=== PATIENT | male | born 1980 | race African-American/Black ===

== ENCOUNTER 2018-01-08 15:02 | Emergency (ER) | payer OTHER, SELFPAY ==
[2018-01-08 15:58] LABS: #Eosinphils 0.1 thou/uL (0.0-0.7); #Lymphocytes 1.5 thou/uL (1.20-3.40); #Monocytes 0.5 thou/uL (0.11-0.59); #Neutrophils 5.3 thou/uL (1.40-6.50); %Basophils 0.6 % (0.0-1.0); %Eosinophils 1.1 % (0.0-10.0); %Lymphocytes 20.3 % (21.0-51.0); %Monocytes 6.7 % (0.0-10.0); %Neutrophils 71.3 % (42.0-75.0); Hemoglobin 14.6 g/dL (14.0-18.0); Mean Corpuscular HGB CONC 34.2 g/dL (32.0-36.0); Mean Corpuscular Hemoglobin 31.2 pg (27.0-31.0); Mean Corpuscular Volume 91.3 fl (80.0-94.0); Mean Platelet Volume 10.1 fL (7.4-10.4); Platelet Count 136 thou/uL (130-400); RBC Distribution Width 12.4 % (11.5-14.5); Red Blood Cell (RBC) Count 4.68 mill/uL (4.70-6.10); White Blood Cell (WBC) Count 7.4 thou/uL (4.8-10.8)
[2018-01-08 16:05] LABS: PTT 26.2 SEC (22.9-36.1); Prothrombin Time 13.2 SEC (12.0-14.7)
[2018-01-08 16:20] LABS: ALT (SGPT) 20 U/L (8-55); AST (SGOT) 16 U/L (5-34); Albumin 4.2 g/dL (3.5-5.0); Alkaline Phosphatase 71 U/L (40-150); Anion Gap 9 mmol/L (10-20); BUN (Urea Nitrogen) 15 mg/dL (8.9-20.6); Bilirubin, Total 0.2 mg/dL (0.2-1.2); CK (CPK) 136 U/L (30-200); Calc. Creatinine Clearance 0 mL/min (70-130); Calcium 9.2 mg/dL (7.8-10.44); Carbon Dioxide 31 mmol/L (22-29); Chloride 104 mmol/L (98-107); Estimated GFR-MDRD 75; Glucose 90 mg/dL (70-105); Potassium 3.6 mmol/L (3.5-5.1); Protein, Total 7.2 g/dL (6.0-8.3); Sodium 140 mmol/L (136-145)
[2018-01-08 16:21] LABS: Acetaminophen Less than 6.0 mcg/mL (10.0-30.0); Alcohol Less than 10 mg/dL (Less than 10); Magnesium 2.4 mg/dL (1.6-2.6); Salicylate Less than 8.0 mg/dL (15.0-30.0)
[2018-01-08 16:24] LABS: CKMB 0.5 ng/mL (0-6.6); Troponin I Less than 0.010 ng/mL (< 0.028)
--- NOTE | 2018-01-08 16:25 | CT ---
CT OF BRAIN PERFORMED WITHOUT CONTRAST ENHANCEMENT: Date: 01/08/18 HISTORY: Altered mental status. COMPARISON: None. FINDINGS: Postop right frontal craniotomy change is noted. There is underlying encephalomalacia of the frontal and temporal lobe region. There are no signs of intracerebral hemorrhage or extra-axial fluid collect ions. IMPRESSION: Encephalomalacia change of the right frontal and temporal lobes with postop craniotomy change. No acu te intracranial abnormalities. POS: [facility]
[2018-01-08 16:46] LABS: Bilirubin Negative (Negative); Blood, Urine Negative (Negative); Clarity CLEAR (Clear); Glucose, Urine (Dipstick) Negative (Negative); Leukocyte Negative (Negative); Nitrite Negative (Negative); Protein, Urine (Dipstick) Negative (Neg-Trace); Urobilinogen 0.2 mg/dL (0.2-1.0)
[2018-01-08 16:54] LABS: Amphetamine Not Detected (NotDetected); Barbiturates Screen Not Detected (NotDetected); Benzodiazepine Screen Not Detected (NotDetected); Cocaine Metabolite Screen Not Detected (NotDetected); Medtox Control Line Valid? VALID (VALID); Medtox Reader # READER 1; Methadone Not Detected (NotDetected); Methamphetamine Not Detected (NotDetected); Opiate Screen Not Detected (NotDetected); Oxycodone Screen Not Detected (NotDetected); Phencyclidine (PCP) Not Detected (NotDetected); THC/Cannabinoid Screen Not Detected (NotDetected); Tricyclic Screen Not Detected (NotDetected)
== END 2018-01-08 18:17 | disposition home or self-care (01) ==
LOC: ERS 15:02
DX: R41.82 Altered mental status, unspecified (principal); T50.905A Adverse effect of unspecified drugs, medicaments and biological substances, initial encounter; Z87.891 Personal history of nicotine dependence
CPT/HCPCS: 36415; 70450; 80053; 80306; 80307; 81003; 82550; 82553; 83735; 84443; 84484; 85025; 85610; 85730; 93005; 96360

== ENCOUNTER 2018-04-19 13:07 | Emergency (ER) | payer SELFPAY | END 2018-04-19 15:20 | disposition home or self-care (01) | LOC: ERS 13:07 | DX: K62.5 Hemorrhage of anus and rectum (principal); Z87.891 Personal history of nicotine dependence | CPT/HCPCS: 82274; 99283 ==

== ENCOUNTER 2018-05-27 15:00 | Emergency (ER) | payer SELFPAY ==
[2018-05-27 15:48] LABS: #Eosinphils 0.3 thou/uL (0.0-0.7); #Lymphocytes 1.2 thou/uL (1.20-3.40); #Monocytes 0.5 thou/uL (0.11-0.59); #Neutrophils 3.9 thou/uL (1.40-6.50); %Basophils 0.2 % (0.0-1.0); %Eosinophils 4.6 % (0.0-10.0); %Lymphocytes 20.3 % (21.0-51.0); %Monocytes 7.7 % (0.0-10.0); %Neutrophils 67.2 % (42.0-75.0); Hemoglobin 14.2 g/dL (14.0-18.0); Mean Corpuscular HGB CONC 33.1 g/dL (32.0-36.0); Mean Corpuscular Hemoglobin 30.2 pg (27.0-31.0); Mean Corpuscular Volume 91.2 fL (78.0-98.0); Mean Platelet Volume 9.4 fL (7.4-10.4); Platelet Count 161 thou/uL (130-400); RBC Distribution Width 12.2 % (11.5-14.5); White Blood Cell (WBC) Count 5.8 thou/uL (4.8-10.8)
[2018-05-27 16:11] LABS: ALT (SGPT) 20 U/L (8-55); AST (SGOT) 19 U/L (5-34); Acetaminophen Less than 6.0 mcg/mL (10.0-30.0); Albumin 4.3 g/dL (3.5-5.0); Alcohol 78 mg/dL (Less than 10); Alkaline Phosphatase 92 U/L (40-150); Anion Gap 14 mmol/L (10-20); BUN (Urea Nitrogen) 11 mg/dL (8.9-20.6); Bilirubin, Total 0.3 mg/dL (0.2-1.2); Calc. Creatinine Clearance 0 mL/min (70-130); Calcium 8.9 mg/dL (7.8-10.44); Carbon Dioxide 21 mmol/L (22-29); Chloride 105 mmol/L (98-107); Estimated GFR-MDRD 89; Globulin 3.1 g/dL (2.4-3.5); Glucose 97 mg/dL (70-105); Potassium 3.5 mmol/L (3.5-5.1); Protein, Total 7.4 g/dL (6.0-8.3); Salicylate Less than 8.0 mg/dL (15.0-30.0); Sodium 136 mmol/L (136-145)
--- NOTE | 2018-05-27 16:22 | CT ---
CT HEAD NONCONTRAST: 05/27/18 HISTORY: Altered mental status. COMPARISON: 01/08/18. FINDINGS: There is no evidence of acute intracranial hemorrhage or infarct. Encephalomalacia in the right front al and temporal lobes from old infarcts are stable. There is no mass effect or shift of midline struc tures. Ventricles are unremarkable. The visualized paranasal sinuses remain well aerated. 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 No acute intracranial abnormalities are demonstrated. POS: [facility]
[2018-05-27 16:56] LABS: Bilirubin Negative (Negative); Blood, Urine Negative (Negative); Clarity CLEAR (Clear); Glucose, Urine (Dipstick) Negative (Negative); Leukocyte Negative (Negative); Nitrite Negative (Negative); Protein, Urine (Dipstick) Negative (Neg-Trace); Specific Gravity, Urine 1.013 (1.002-1.036); Urobilinogen 0.2 mg/dL (0.2-1.0); pH, Urine 5.5 (5.0-9.0)
[2018-05-27 17:05] LABS: Amphetamine Not Detected (NotDetected); Barbiturates Screen Not Detected (NotDetected); Benzodiazepine Screen Not Detected (NotDetected); Cocaine Metabolite Screen Not Detected (NotDetected); Medtox Control Line Valid? VALID (VALID); Medtox Reader # READER 1; Methadone Not Detected (NotDetected); Methamphetamine Not Detected (NotDetected); Opiate Screen Not Detected (NotDetected); Oxycodone Screen Not Detected (NotDetected); Phencyclidine (PCP) Not Detected (NotDetected); THC/Cannabinoid Screen Detected (NotDetected); Tricyclic Screen Not Detected (NotDetected)
== END 2018-05-27 18:08 | disposition home or self-care (01) ==
LOC: ERS 15:00
DX: T67.5XXA Heat exhaustion, unspecified, initial encounter (principal); F10.129 Alcohol abuse with intoxication, unspecified; E86.0 Dehydration; F12.10 Cannabis abuse, uncomplicated; Z87.891 Personal history of nicotine dependence
CPT/HCPCS: 36415; 70450; 80053; 80306; 80307; 81003; 82550; 85025; 93005; 96360; 96361

== ENCOUNTER 2018-07-08 18:41 | Emergency (ER) | payer SELFPAY ==
[2018-07-08 19:37] LABS: ALT (SGPT) 37 U/L (8-55); AST (SGOT) 28 U/L (5-34); Albumin 4.5 g/dL (3.5-5.0); Alcohol 180 mg/dL (Less than 10); Alkaline Phosphatase 95 U/L (40-150); Anion Gap 17 mmol/L (10-20); BUN (Urea Nitrogen) 11 mg/dL (8.9-20.6); Bilirubin, Total 0.2 mg/dL (0.2-1.2); Calc. Creatinine Clearance 0 mL/min (70-130); Calcium 9.1 mg/dL (7.8-10.44); Carbon Dioxide 22 mmol/L (22-29); Chloride 106 mmol/L (98-107); Estimated GFR-MDRD 85; Globulin 3.4 g/dL (2.4-3.5); Glucose 91 mg/dL (70-105); Potassium 4.5 mmol/L (3.5-5.1); Protein, Total 7.9 g/dL (6.0-8.3); Sodium 140 mmol/L (136-145)
[2018-07-08 19:44] LABS: Hemoglobin 15.9 g/dL (14.0-18.0); Mean Corpuscular HGB CONC 31.8 g/dL (32.0-36.0); Mean Corpuscular Hemoglobin 29.6 pg (27.0-31.0); Platelet Count 115 thou/uL (130-400); RBC Distribution Width 12.6 % (11.5-14.5); Red Blood Cell (RBC) Count 5.36 mill/uL (4.70-6.10); White Blood Cell (WBC) Count 5.9 thou/uL (4.8-10.8)
[2018-07-08 19:45] LABS: Acetaminophen Less than 6.0 mcg/mL (10.0-30.0); Alcohol 179 mg/dL (Less than 10); Salicylate Less than 8.0 mg/dL (15.0-30.0)
[2018-07-08 19:46] LABS: Lymphocytes 34 % (21-51); MDiff Complete? YES; Monocytes 7 % (0-10); Neutrophil 56 % (42-75); PLT Morphology Comment Appears Decreased; RBC Morphology Normal; Reactive Lymphocytes 2 % (0-10)
--- NOTE | 2018-07-08 20:18 | CT ---
HEAD CT WITHOUT CONTRAST: 07/08/18 COMPARISON: 05/27/18. HISTORY: Altered mental status. TECHNIQUE: Serial axial CT imaging obtained at 5 mm intervals from vertex through skull base without contrast. FINDINGS: There is evidence of multifocal prior right sided calvarial surgery, unchanged when compared to the most recent prior examination. There is volume loss/encephalomalacia within the temporal lobe inferio rly on the right and within the inferior and anterior aspect of the right frontal lobe suggesting lola or insult/infarction, unchanged as well. No intracranial hemorrhage, midline shift of mass effect. IMPRESSION: Stable head CT - no acute findings. POS: [facility]
== END 2018-07-09 00:43 | disposition home or self-care (01) ==
LOC: ERS 18:41
DX: F10.129 Alcohol abuse with intoxication, unspecified (principal); Y90.6 Blood alcohol level of 120-199 mg/100 ml; Z87.891 Personal history of nicotine dependence
CPT/HCPCS: 70450; 80053; 80307; 84443; 85025; 93005; 94760; 96360

== ENCOUNTER 2018-09-01 10:54 | Emergency (ER) | payer SELFPAY ==
[2018-09-01 12:33] LABS: #Basophils 0.1 thou/uL (0.0-0.2); #Eosinphils 0.1 thou/uL (0.0-0.7); #Lymphocytes 1.1 thou/uL (1.20-3.40); #Monocytes 0.3 thou/uL (0.11-0.59); #Neutrophils 3.9 thou/uL (1.40-6.50); %Basophils 1.1 % (0.0-1.0); %Eosinophils 1.1 % (0.0-10.0); %Lymphocytes 20.8 % (21.0-51.0); %Monocytes 5.8 % (0.0-10.0); %Neutrophils 71.2 % (42.0-75.0); Hemoglobin 15.3 g/dL (14.0-18.0); Mean Corpuscular HGB CONC 33.5 g/dL (32.0-36.0); Mean Corpuscular Hemoglobin 30.5 pg (27.0-31.0); Mean Corpuscular Volume 91.2 fL (78.0-98.0); Mean Platelet Volume 9.8 fL (7.4-10.4); Platelet Count 136 thou/uL (130-400); RBC Distribution Width 12.4 % (11.5-14.5); Red Blood Cell (RBC) Count 5.02 mill/uL (4.70-6.10); White Blood Cell (WBC) Count 5.4 thou/uL (4.8-10.8)
[2018-09-01 12:48] LABS: ALT (SGPT) 28 U/L (8-55); AST (SGOT) 18 U/L (5-34); Albumin 4.4 g/dL (3.5-5.0); Alkaline Phosphatase 98 U/L (40-150); Anion Gap 13 mmol/L (10-20); BUN (Urea Nitrogen) 15 mg/dL (8.9-20.6); Bilirubin, Total 0.3 mg/dL (0.2-1.2); Calc. Creatinine Clearance 0 mL/min (70-130); Calcium 9.2 mg/dL (7.8-10.44); Carbon Dioxide 26 mmol/L (22-29); Chloride 104 mmol/L (98-107); Estimated GFR-MDRD 89; Globulin 2.9 g/dL (2.4-3.5); Glucose 108 mg/dL (70-105); Potassium 4.5 mmol/L (3.5-5.1); Protein, Total 7.3 g/dL (6.0-8.3); Sodium 138 mmol/L (136-145)
[2018-09-01 12:49] LABS: Acetaminophen Less than 6.0 mcg/mL (10.0-30.0); Alcohol Less than 10 mg/dL (Less than 10); Salicylate Less than 8.0 mg/dL (15.0-30.0)
--- NOTE | 2018-09-01 13:22 | CT ---
CT BRAIN: 09/01/2018 PROVIDED CLINICAL HISTORY: Syncope. COMPARISON: 07/08/2018 FINDINGS: The ventricular system is unchanged in size and morphology. Right frontal encephalomalacia is redemo nstrated. There is no evidence for intracranial hemorrhage or mass effect. Postoperative changes in volving the right frontal skull. Extracranial soft tissues and osseous structures demonstrate no acu te findings. IMPRESSION: No evidence for intracranial hemorrhage or mass effect. POS: [facility]
--- NOTE | 2018-09-01 13:56 | RAD ---
RADIOGRAPH CHEST 1 VIEW: HISTORY: 37-year-old male status post syncope. FINDINGS: There are no air space densities, pulmonary edema, pneumothorax, or cardiomegaly. The lateral costop hrenic angles are sharp. IMPRESSION: No acute cardiopulmonary findings. jn POS: [facility]
[2018-09-01 13:59] LABS: Amphetamine Not Detected (NotDetected); Barbiturates Screen Not Detected (NotDetected); Benzodiazepine Screen Not Detected (NotDetected); Cocaine Metabolite Screen Not Detected (NotDetected); Medtox Control Line Valid? VALID (VALID); Medtox Reader # READER 1; Methadone Not Detected (NotDetected); Methamphetamine Not Detected (NotDetected); Opiate Screen Not Detected (NotDetected); Oxycodone Screen Not Detected (NotDetected); Phencyclidine (PCP) Not Detected (NotDetected); THC/Cannabinoid Screen Detected (NotDetected); Tricyclic Screen Not Detected (NotDetected)
== END 2018-09-01 14:44 | disposition home or self-care (01) ==
LOC: ERS 10:54
DX: L91.8 Other hypertrophic disorders of the skin (principal); F84.0 Autistic disorder; D57.00 Hb-SS disease with crisis, unspecified
CPT/HCPCS: 36415; 36416; 70450; 71045; 80053; 80306; 80307; 84443; 84484; 85025; 93005

== ENCOUNTER 2018-11-28 18:08 | Emergency (ER) | payer SELFPAY ==
[2018-11-28 18:51] LABS: #Lymphocytes 1.1 thou/uL (1.20-3.40); #Monocytes 0.3 thou/uL (0.11-0.59); #Neutrophils 4.7 thou/uL (1.40-6.50); %Basophils 0.1 % (0.0-1.0); %Eosinophils 0.7 % (0.0-10.0); %Lymphocytes 18.1 % (21.0-51.0); %Monocytes 4.9 % (0.0-10.0); %Neutrophils 76.2 % (42.0-75.0); Hemoglobin 13.8 g/dL (14.0-18.0); Mean Corpuscular HGB CONC 33.1 g/dL (32.0-36.0); Mean Corpuscular Volume 93.8 fL (78.0-98.0); Mean Platelet Volume 9.7 fL (7.4-10.4); Platelet Count 146 thou/uL (130-400); RBC Distribution Width 12.2 % (11.5-14.5); Red Blood Cell (RBC) Count 4.43 mill/uL (4.70-6.10); White Blood Cell (WBC) Count 6.2 thou/uL (4.8-10.8)
[2018-11-28 19:13] LABS: ALT (SGPT) 21 U/L (8-55); AST (SGOT) 15 U/L (5-34); Acetaminophen Less than 6.0 mcg/mL (10.0-30.0); Albumin 4.4 g/dL (3.5-5.0); Alcohol 13 mg/dL (Less than 10); Alkaline Phosphatase 94 U/L (40-150); Anion Gap 14 mmol/L (10-20); BUN (Urea Nitrogen) 12 mg/dL (8.9-20.6); Bilirubin, Total 0.3 mg/dL (0.2-1.2); Calc. Creatinine Clearance 0 mL/min (70-130); Calcium 9.5 mg/dL (7.8-10.44); Carbon Dioxide 25 mmol/L (22-29); Chloride 107 mmol/L (98-107); Estimated GFR-MDRD 66; Globulin 2.8 g/dL (2.4-3.5); Glucose 115 mg/dL (70-105); Potassium 3.5 mmol/L (3.5-5.1); Protein, Total 7.2 g/dL (6.0-8.3); Salicylate Less than 8.0 mg/dL (15.0-30.0); Sodium 142 mmol/L (136-145)
[2018-11-28] MEDS ORDERED: Adacel (T-DAP) 0.5 ML SYRINGE ONE (20:19)
--- NOTE | 2018-12-02 15:35 | EKG ---
Test Reason : AMS Blood Pressure : / mmHG Vent. Rate : 098 BPM Atrial Rate : 098 BPM P-R Int : 174 ms QRS Dur : 098 ms QT Int : 344 ms P-R-T Axes : 024 -03 004 degrees QTc Int : 439 ms Normal sinus rhythm Possible Left atrial enlargement RSR' or QR pattern in V1 suggests right ventricular conduction delay Left ventricular hypertrophy ST elevation, consider early repolarization, pericarditis, or injury Abnormal ECG Basic electrical rhythm Confirmed by RED CARCAMO ([id number]), telegraph editor ANDREW MONGE ([id number]) on 12/02/2018 3:35:06 PM Referred By: CARLOS ALBERTO Confirmed By:RED CARCAMO
== END 2018-11-28 21:09 | disposition home or self-care (01) ==
LOC: ERS 18:08
DX: F16.10 Hallucinogen abuse, uncomplicated (principal); Z87.891 Personal history of nicotine dependence
CPT/HCPCS: 36415; 80053; 80307; 85025; 90471; 90715; 93005

== ENCOUNTER 2019-02-18 19:55 | Emergency (ER) | payer SELFPAY ==
[2019-02-18] MEDS ORDERED: Acetaminophen 500 MG TAB ONE (21:01)
[2019-02-18 21:51] LABS: #Eosinphils 0.1 thou/uL (0.0-0.7); #Monocytes 0.3 thou/uL (0.11-0.59); #Neutrophils 3.9 thou/uL (1.40-6.50); %Basophils 0.7 % (0.0-1.0); %Eosinophils 1.2 % (0.0-10.0); %Lymphocytes 31.1 % (21.0-51.0); %Monocytes 4.3 % (0.0-10.0); %Neutrophils 62.7 % (42.0-75.0); Hemoglobin 14.1 g/dL (14.0-18.0); Mean Corpuscular HGB CONC 33.9 g/dL (32.0-36.0); Mean Corpuscular Hemoglobin 31.7 pg (27.0-31.0); Mean Corpuscular Volume 93.5 fL (78.0-98.0); Mean Platelet Volume 9.7 fL (7.4-10.4); Platelet Count 151 thou/uL (130-400); RBC Distribution Width 12.1 % (11.5-14.5); Red Blood Cell (RBC) Count 4.44 mill/uL (4.70-6.10); White Blood Cell (WBC) Count 6.3 thou/uL (4.8-10.8)
[2019-02-18 22:27] LABS: Albumin 4.3 g/dL (3.5-5.0)
[2019-02-18 22:29] LABS: Calcium 8.6 mg/dL (7.8-10.44); Chloride 109 mmol/L (98-107); Potassium 3.7 mmol/L (3.5-5.1); Sodium 141 mmol/L (136-145)
[2019-02-18 22:30] LABS: Globulin 2.7 g/dL (2.4-3.5); Glucose 103 mg/dL (70-105)
[2019-02-18 22:31] LABS: Anion Gap 17 mmol/L (10-20); Carbon Dioxide 19 mmol/L (22-29)
[2019-02-18 22:32] LABS: Bilirubin, Total 0.2 mg/dL (0.2-1.2)
[2019-02-18 22:33] LABS: Alkaline Phosphatase 86 U/L (40-150); Calc. Creatinine Clearance 0 mL/min (70-130); Estimated GFR-MDRD Greater than 90
[2019-02-18 22:34] LABS: BUN (Urea Nitrogen) 9 mg/dL (8.9-20.6)
[2019-02-18 22:35] LABS: AST (SGOT) 21 U/L (5-34)
[2019-02-18 22:36] LABS: ALT (SGPT) 27 U/L (8-55)
== END 2019-02-18 22:45 ==
LOC: ERS 19:55
DX: F19.10 Other psychoactive substance abuse, uncomplicated (principal); Z87.891 Personal history of nicotine dependence
CPT/HCPCS: 36415; 80053; 85025; 93005; 96360

== ENCOUNTER 2019-02-22 16:57 | Emergency (ER) | payer SELFPAY ==
[2019-02-22 17:28] LABS: #Eosinphils 0.1 thou/uL (0.0-0.7); #Monocytes 0.4 thou/uL (0.11-0.59); #Neutrophils 3.9 thou/uL (1.40-6.50); %Basophils 0.7 % (0.0-1.0); %Eosinophils 1.8 % (0.0-10.0); %Lymphocytes 30.8 % (21.0-51.0); %Monocytes 6.3 % (0.0-10.0); %Neutrophils 60.4 % (42.0-75.0); Hemoglobin 15.4 g/dL (14.0-18.0); Mean Corpuscular HGB CONC 33.7 g/dL (32.0-36.0); Mean Corpuscular Hemoglobin 31.4 pg (27.0-31.0); Mean Corpuscular Volume 93.3 fL (78.0-98.0); Mean Platelet Volume 9.9 fL (7.4-10.4); Platelet Count 166 thou/uL (130-400); White Blood Cell (WBC) Count 6.4 thou/uL (4.8-10.8)
[2019-02-22 17:47] LABS: ALT (SGPT) 38 U/L (8-55); AST (SGOT) 30 U/L (5-34); Albumin 4.7 g/dL (3.5-5.0); Alkaline Phosphatase 93 U/L (40-150); Anion Gap 15 mmol/L (10-20); BUN (Urea Nitrogen) 13 mg/dL (8.9-20.6); Bilirubin, Total 0.3 mg/dL (0.2-1.2); Calc. Creatinine Clearance 0 mL/min (70-130); Carbon Dioxide 24 mmol/L (22-29); Chloride 108 mmol/L (98-107); Estimated GFR-MDRD 67; Globulin 3.4 g/dL (2.4-3.5); Glucose 103 mg/dL (70-105); Potassium 4.3 mmol/L (3.5-5.1); Protein, Total 8.1 g/dL (6.0-8.3); Sodium 143 mmol/L (136-145)
[2019-02-22 19:41] LABS: Acetaminophen Less than 6.0 mcg/mL (10.0-30.0); Alcohol 54 mg/dL (Less than 10); Salicylate Less than 8.0 mg/dL (15.0-30.0)
[2019-02-22 19:45] LABS: Anion Gap 15 mmol/L (10-20); BUN (Urea Nitrogen) 12 mg/dL (8.9-20.6); CK (CPK) 252 U/L (30-200); Calc. Creatinine Clearance 0 mL/min (70-130); Calcium 8.4 mg/dL (7.8-10.44); Carbon Dioxide 22 mmol/L (22-29); Chloride 107 mmol/L (98-107); Estimated GFR-MDRD 77; Glucose 106 mg/dL (70-105); Potassium 4.1 mmol/L (3.5-5.1); Sodium 140 mmol/L (136-145)
[2019-02-22 19:57] LABS: Bacteria/HPF 1+ HPF (None Seen); Bilirubin Negative (Negative); Blood, Urine Negative (Negative); Calcium Oxalate Crystals 3+ HPF (None Seen); Clarity Turbid (Clear); Glucose, Urine (Dipstick) Normal (Negative); Leukocyte Negative Leu/uL (Negative); Nitrite Negative (Negative); Protein, Urine (Dipstick) 20 mg/dL (Neg-Trace); Squamous Epithelial 0-3 HPF (0-3); Urobilinogen Normal mg/dL (Less than 2)
[2019-02-22 20:06] LABS: Yeast-Budding None Seen HPF (None Seen)
[2019-02-22 20:47] LABS: Amphetamine Not Detected (NotDetected); Barbiturates Screen Not Detected (NotDetected); Benzodiazepine Screen Not Detected (NotDetected); Cocaine Metabolite Screen Not Detected (NotDetected); Medtox Control Line Valid? VALID (VALID); Medtox Reader # READER 1; Methadone Not Detected (NotDetected); Methamphetamine Not Detected (NotDetected); Opiate Screen Not Detected (NotDetected); Oxycodone Screen Not Detected (NotDetected); Phencyclidine (PCP) Not Detected (NotDetected); THC/Cannabinoid Screen Detected (NotDetected); Tricyclic Screen Not Detected (NotDetected)
--- NOTE | 2019-02-24 22:10 | EKG ---
Test Reason : AMS Blood Pressure : / mmHG Vent. Rate : 092 BPM Atrial Rate : 092 BPM P-R Int : 164 ms QRS Dur : 084 ms QT Int : 356 ms P-R-T Axes : 043 -12 038 degrees QTc Int : 440 ms Normal sinus rhythm Normal ECG Confirmed by RULA GRIMES ([id number]), book editor LAN VÁSQUEZ ([id number]) on 02/24/2019 10:09:24 PM Referred By: Confirmed By:RULA GRIMES
== END 2019-02-22 23:44 | disposition home or self-care (01) ==
LOC: ERS 16:57
DX: F12.10 Cannabis abuse, uncomplicated (principal); Z87.891 Personal history of nicotine dependence
CPT/HCPCS: 36415; 36416; 80053; 80306; 80307; 81003; 82550; 84443; 85025; 93005; 96360

== ENCOUNTER 2019-02-23 17:06 | Emergency (ER) | payer SELFPAY ==
[2019-02-23 17:38] LABS: #Eosinphils 0.1 thou/uL (0.0-0.7); #Lymphocytes 1.4 thou/uL (1.20-3.40); #Monocytes 0.2 thou/uL (0.11-0.59); #Neutrophils 3.7 thou/uL (1.40-6.50); %Basophils 0.3 % (0.0-1.0); %Lymphocytes 26.2 % (21.0-51.0); %Monocytes 4.1 % (0.0-10.0); %Neutrophils 68.3 % (42.0-75.0); Hemoglobin 14.1 g/dL (14.0-18.0); Mean Corpuscular HGB CONC 33.7 g/dL (32.0-36.0); Mean Corpuscular Hemoglobin 31.4 pg (27.0-31.0); Mean Corpuscular Volume 93.3 fL (78.0-98.0); Mean Platelet Volume 10.1 fL (7.4-10.4); Platelet Count 145 thou/uL (130-400); RBC Distribution Width 11.9 % (11.5-14.5); Red Blood Cell (RBC) Count 4.47 mill/uL (4.70-6.10); White Blood Cell (WBC) Count 5.4 thou/uL (4.8-10.8)
[2019-02-23 18:02] LABS: ALT (SGPT) 37 U/L (8-55); AST (SGOT) 34 U/L (5-34); Albumin 4.3 g/dL (3.5-5.0); Alkaline Phosphatase 84 U/L (40-150); Anion Gap 16 mmol/L (10-20); BUN (Urea Nitrogen) 13 mg/dL (8.9-20.6); Bilirubin, Total 0.3 mg/dL (0.2-1.2); Calc. Creatinine Clearance 0 mL/min (70-130); Calcium 8.9 mg/dL (7.8-10.44); Carbon Dioxide 22 mmol/L (22-29); Chloride 108 mmol/L (98-107); Estimated GFR-MDRD 78; Globulin 3.1 g/dL (2.4-3.5); Glucose 108 mg/dL (70-105); Potassium 4.5 mmol/L (3.5-5.1); Protein, Total 7.4 g/dL (6.0-8.3); Sodium 141 mmol/L (136-145)
== END 2019-02-23 20:52 | disposition home or self-care (01) ==
LOC: ERS 17:06
DX: F19.10 Other psychoactive substance abuse, uncomplicated (principal); Z87.891 Personal history of nicotine dependence
CPT/HCPCS: 80053; 85025; 93005; 94760; 96360

== ENCOUNTER 2019-03-30 17:14 | Emergency (ER) | payer SELFPAY ==
[2019-03-30 18:11] LABS: #Eosinphils 0.1 thou/uL (0.0-0.7); #Lymphocytes 1.8 thou/uL (1.20-3.40); #Monocytes 0.3 thou/uL (0.11-0.59); #Neutrophils 3.5 thou/uL (1.40-6.50); %Basophils 0.6 % (0.0-1.0); %Lymphocytes 31.6 % (21.0-51.0); %Monocytes 5.2 % (0.0-10.0); %Neutrophils 60.7 % (42.0-75.0); Hemoglobin 14.2 g/dL (14.0-18.0); Mean Corpuscular Hemoglobin 31.4 pg (27.0-31.0); Mean Corpuscular Volume 92.4 fL (78.0-98.0); Mean Platelet Volume 10.1 fL (7.4-10.4); Platelet Count 143 thou/uL (130-400); RBC Distribution Width 12.1 % (11.5-14.5); Red Blood Cell (RBC) Count 4.53 mill/uL (4.70-6.10); White Blood Cell (WBC) Count 5.8 thou/uL (4.8-10.8)
[2019-03-30 18:23] LABS: Bilirubin Negative (Negative); Blood, Urine Negative (Negative); Clarity Clear (Clear); Glucose, Urine (Dipstick) Normal (Negative); Leukocyte Negative Leu/uL (Negative); Nitrite Negative (Negative); Protein, Urine (Dipstick) 10 mg/dL (Neg-Trace); Urobilinogen Normal mg/dL (Less than 2)
[2019-03-30 18:30] LABS: Anion Gap 15 mmol/L (10-20); BUN (Urea Nitrogen) 11 mg/dL (8.9-20.6); CK (CPK) 203 U/L (30-200); Calc. Creatinine Clearance 0 mL/min (70-130); Carbon Dioxide 23 mmol/L (22-29); Chloride 106 mmol/L (98-107); Estimated GFR-MDRD 84; Glucose 82 mg/dL (70-105); Potassium 3.5 mmol/L (3.5-5.1); Sodium 140 mmol/L (136-145)
[2019-03-30 18:33] LABS: Amphetamine Not Detected (NotDetected); Barbiturates Screen Not Detected (NotDetected); Benzodiazepine Screen Not Detected (NotDetected); Cocaine Metabolite Screen Not Detected (NotDetected); Medtox Control Line Valid? VALID (VALID); Medtox Reader # READER 4; Methadone Not Detected (NotDetected); Methamphetamine Not Detected (NotDetected); Opiate Screen Not Detected (NotDetected); Oxycodone Screen Not Detected (NotDetected); Phencyclidine (PCP) Not Detected (NotDetected); THC/Cannabinoid Screen Detected (NotDetected); Tricyclic Screen Not Detected (NotDetected)
== END 2019-03-30 20:26 | disposition home or self-care (01) ==
LOC: ERS 17:14
DX: T67.5XXA Heat exhaustion, unspecified, initial encounter (principal); E86.0 Dehydration; Z87.891 Personal history of nicotine dependence
CPT/HCPCS: 36415; 80048; 80306; 81003; 82550; 85025; 99285

== ENCOUNTER 2019-04-04 20:57 | Emergency (ER) | payer SELFPAY ==
[2019-04-04 21:33] LABS: #Lymphocytes 1.4 thou/uL (1.20-3.40); #Monocytes 0.4 thou/uL (0.11-0.59); %Basophils 0.1 % (0.0-1.0); %Eosinophils 0.5 % (0.0-10.0); %Lymphocytes 20.7 % (21.0-51.0); %Monocytes 5.6 % (0.0-10.0); %Neutrophils 73.1 % (42.0-75.0); Hemoglobin 14.4 g/dL (14.0-18.0); Mean Corpuscular HGB CONC 34.7 g/dL (32.0-36.0); Mean Corpuscular Hemoglobin 32.3 pg (27.0-31.0); Mean Platelet Volume 9.8 fL (7.4-10.4); Platelet Count 143 thou/uL (130-400); RBC Distribution Width 12.1 % (11.5-14.5); Red Blood Cell (RBC) Count 4.45 mill/uL (4.70-6.10); White Blood Cell (WBC) Count 6.9 thou/uL (4.8-10.8)
[2019-04-04 22:07] LABS: ALT (SGPT) 28 U/L (8-55); AST (SGOT) 22 U/L (5-34); Acetaminophen Less than 6.0 mcg/mL (10.0-30.0); Albumin 4.2 g/dL (3.5-5.0); Alcohol Less than 10 mg/dL (Less than 10); Alkaline Phosphatase 85 U/L (40-150); Anion Gap 14 mmol/L (10-20); BUN (Urea Nitrogen) 14 mg/dL (8.9-20.6); Bilirubin, Total 0.2 mg/dL (0.2-1.2); Calc. Creatinine Clearance 0 mL/min (70-130); Calcium 8.9 mg/dL (7.8-10.44); Carbon Dioxide 22 mmol/L (22-29); Chloride 106 mmol/L (98-107); Estimated GFR-MDRD 62; Globulin 2.8 g/dL (2.4-3.5); Glucose 143 mg/dL (70-105); Potassium 3.9 mmol/L (3.5-5.1); Salicylate Less than 8.0 mg/dL (15.0-30.0); Sodium 138 mmol/L (136-145)
[2019-04-04 22:27] LABS: Amphetamine Not Detected (NotDetected); Cocaine Metabolite Screen Not Detected (NotDetected); Medtox Reader # READER 1; Methamphetamine Not Detected (NotDetected); Opiate Screen Not Detected (NotDetected); Phencyclidine (PCP) Not Detected (NotDetected); THC/Cannabinoid Screen Detected (NotDetected)
[2019-04-04 22:28] LABS: Barbiturates Screen Not Detected (NotDetected); Benzodiazepine Screen Not Detected (NotDetected); Medtox Control Line Valid? VALID (VALID); Methadone Not Detected (NotDetected); Oxycodone Screen Not Detected (NotDetected); Tricyclic Screen Not Detected (NotDetected)
[2019-04-04] MEDS ORDERED: Ondansetron ODT 8 MG TAB ONE (23:28)
--- NOTE | 2019-04-04 23:49 | CT ---
CT Brain WO Con HISTORY: Altered mental status. COMPARISON: 09/01/2018 exam. FINDINGS: Postoperative right frontal craniotomy changes are again demonstrated. Encephalomalacia smitha nges seen within the right frontal and temporal lobes. There are no signs of intracerebral hemorrhage or extra-axial fluid collections. The mastoid air cells and visualized sinuses are clear. IMPRESSION: No acute intracranial abnormalities.
[2019-04-04] MEDS ORDERED: Acetaminophen 500 MG TAB ONE (23:57)
== END 2019-04-05 00:04 | disposition home or self-care (01) ==
LOC: ERS 20:57
DX: F12.10 Cannabis abuse, uncomplicated (principal); Z87.891 Personal history of nicotine dependence
CPT/HCPCS: 70450; 80053; 80306; 80307; 82550; 85025; 94760; 96360

== ENCOUNTER 2019-05-26 13:00 | Emergency (ER) | payer SELFPAY ==
[2019-05-26 13:59] LABS: #Lymphocytes 1.5 thou/uL (1.20-3.40); #Monocytes 0.4 thou/uL (0.11-0.59); #Neutrophils 2.9 thou/uL (1.40-6.50); %Basophils 0.2 % (0.0-1.0); %Lymphocytes 31.6 % (21.0-51.0); %Monocytes 7.2 % (0.0-10.0); Hemoglobin 15.2 g/dL (14.0-18.0); Mean Corpuscular HGB CONC 33.7 g/dL (32.0-36.0); Mean Corpuscular Hemoglobin 31.4 pg (27.0-31.0); Mean Corpuscular Volume 93.2 fL (78.0-98.0); Mean Platelet Volume 10.4 fL (7.4-10.4); Platelet Count 126 thou/uL (130-400); RBC Distribution Width 11.9 % (11.5-14.5); Red Blood Cell (RBC) Count 4.84 mill/uL (4.70-6.10); White Blood Cell (WBC) Count 4.8 thou/uL (4.8-10.8)
[2019-05-26 14:12] LABS: Cocaine Metabolite Screen Not Detected (NotDetected); Medtox Reader # READER 1; Methamphetamine Not Detected (NotDetected); Opiate Screen Not Detected (NotDetected); Phencyclidine (PCP) Not Detected (NotDetected); THC/Cannabinoid Screen Detected (NotDetected)
[2019-05-26 14:13] LABS: Amphetamine Not Detected (NotDetected); Barbiturates Screen Not Detected (NotDetected); Benzodiazepine Screen Not Detected (NotDetected); Medtox Control Line Valid? VALID (VALID); Methadone Not Detected (NotDetected); Oxycodone Screen Not Detected (NotDetected); Tricyclic Screen Not Detected (NotDetected)
--- NOTE | 2019-05-26 14:22 | CT ---
CT Brain WO Con: 05/26/2019 1:30 PM CLINICAL HISTORY: AMS. COMPARISON: 04/04/2019 FINDINGS: Hemorrhage: None. Ventricular system: Stable ex vacuo dilatation. Cerebral parenchyma: Moderate size region of anterior right cerebral hemispheric encephalomalacia, an d encephalomalacia of the anterior right temporal lobe, stable Midline shift: None. Mass: No mass effect. Calvarium: Stable postoperative appearance of the right calvarium. Visualized Paranasal sinuses: Scattered paranasal sinus opacification including moderate fluid levels of the imaged maxillary sinuses. IMPRESSION: No acute intracranial abnormalities. Interval development of prominent fluid levels of the maxillary sinuses. This indicates acute sinusit is. Correlate clinically.
[2019-05-26 14:23] LABS: ALT (SGPT) 47 U/L (8-55); AST (SGOT) 39 U/L (5-34); Acetaminophen Less than 6.0 mcg/mL (10.0-30.0); Albumin 4.3 g/dL (3.5-5.0); Alcohol Less than 10 mg/dL (Less than 10); Alkaline Phosphatase 97 U/L (40-110); Anion Gap 16 mmol/L (10-20); BUN (Urea Nitrogen) 9 mg/dL (8.9-20.6); Bilirubin, Total 0.4 mg/dL (0.2-1.2); Calc. Creatinine Clearance 0 mL/min (70-130); Calcium 8.8 mg/dL (7.8-10.44); Carbon Dioxide 22 mmol/L (22-29); Chloride 104 mmol/L (98-107); Estimated GFR-MDRD Greater than 90; Globulin 3.4 g/dL (2.4-3.5); Glucose 116 mg/dL (70-105); Potassium 4.4 mmol/L (3.5-5.1); Protein, Total 7.7 g/dL (6.0-8.3); Salicylate Less than 8.0 mg/dL (15.0-30.0); Sodium 138 mmol/L (136-145)
[2019-05-26 14:45] LABS: Actual Bicarbonate (HCO3v) 29 mEq/L (22-28); Analyzer IN Cardio ER; Base Excess 2.1 mEq/L (-2.0 to +3.0); Calcium, Ionized 1.12 mmol/L (1.16-1.32); Chloride (ABG LAB) 103 mmol/L (98-106); Hemoglobin (Hb) 14.9 g/dL (13.2-17.3); Sodium 137.4 mmol/L (133-146); pH (venous) 7.35 (7.32-7.43)
--- NOTE | 2019-05-26 15:01 | RAD ---
EXAM: CHEST ONE VIEW HISTORY: Altered mental status. COMPARISON: 09/01/2018 FINDINGS: Cardiac silhouette is magnified by projection. There is mild elevation of the right hemidiaphragm. Pu lmonary vasculature is within normal limits. Lungs are clear. The osseous structures are intact. There has been no significant interval change from prior exam. IMPRESSION: No acute cardiopulmonary process.
== END 2019-05-26 17:25 | disposition home or self-care (01) ==
LOC: ERS 13:00
DX: F19.10 Other psychoactive substance abuse, uncomplicated (principal); Z87.891 Personal history of nicotine dependence
CPT/HCPCS: 70450; 71045; 80053; 80306; 80307; 82140; 82550; 82805; 84443; 84484; 85025; 93005; 96360; 96361

== ENCOUNTER 2019-08-09 18:32 | Emergency (ER) | payer SELFPAY ==
[2019-08-09 19:24] LABS: #Eosinphils 0.1 thou/uL (0.0-0.7); #Lymphocytes 1.8 thou/uL (1.20-3.40); #Monocytes 0.4 thou/uL (0.11-0.59); #Neutrophils 5.1 thou/uL (1.40-6.50); %Basophils 0.3 % (0.0-1.0); %Eosinophils 1.3 % (0.0-10.0); %Monocytes 5.3 % (0.0-10.0); %Neutrophils 69.1 % (42.0-75.0); Hemoglobin 15.4 g/dL (14.0-18.0); Mean Corpuscular HGB CONC 33.6 g/dL (32.0-36.0); Mean Corpuscular Hemoglobin 30.9 pg (27.0-31.0); Mean Corpuscular Volume 92.2 fL (78.0-98.0); Platelet Count 165 thou/uL (130-400); RBC Distribution Width 11.9 % (11.5-14.5); Red Blood Cell (RBC) Count 4.99 mill/uL (4.70-6.10); White Blood Cell (WBC) Count 7.3 thou/uL (4.8-10.8)
--- NOTE | 2019-08-09 19:41 | RAD ---
PORTABLE CHEST ONE VIEW: 08/09/19 at 7:03 p.m. HISTORY: Syncope. FINDINGS: comparison made with the exam of 05/26/19. The heart size is prominent but stable. There is continued elevation of the right hemidiaphragm. No l obar consolidation, pneumothoraces, aleksandra pulmonary edema or pleural effusions are identified. IMPRESSION: No acute process. POS: [facility]
[2019-08-09 19:45] LABS: ALT (SGPT) 30 U/L (8-55); AST (SGOT) 20 U/L (5-34); Albumin 4.7 g/dL (3.5-5.0); Alkaline Phosphatase 88 U/L (40-110); Anion Gap 10 mmol/L (10-20); BUN (Urea Nitrogen) 15 mg/dL (8.9-20.6); Bilirubin, Total 0.4 mg/dL (0.2-1.2); Calc. Creatinine Clearance 0 mL/min (70-130); Calcium 9.4 mg/dL (7.8-10.44); Carbon Dioxide 31 mmol/L (22-29); Chloride 103 mmol/L (98-107); Estimated GFR-MDRD 75; Glucose 94 mg/dL (70-105); Potassium 4.1 mmol/L (3.5-5.1); Protein, Total 7.7 g/dL (6.0-8.3); Sodium 140 mmol/L (136-145)
[2019-08-09 19:48] LABS: Acetaminophen Less than 6.0 mcg/mL (10.0-30.0); Alcohol Less than 10 mg/dL (Less than 10); Salicylate Less than 8.0 mg/dL (15.0-30.0)
--- NOTE | 2019-08-09 20:08 | CT ---
CT BRAIN WITHOUT CONTRAST: 08/09/19 HISTORY: Syncope. COMPARISON: 05/25/19. FINDINGS: Moderate sized region of anterior right ventricular hemispheric encephalomalacia and encephalomalacia of the right temporal lobe are stable. Ex vacuo dilatation of the ventricular system is also stable. No evidence of acute infarct, hemorrhage, midline shift, or abnormal extra-axial fluid collections a re seen. Postop changes of the right calvarium are again seen. The visualized paranasal sinuses and m astoid air cells are well aerated. IMPRESSION: No CT evidence of acute intracranial process. POS: [facility]
[2019-08-09 21:37] LABS: Bilirubin Negative (Negative); Blood, Urine Negative (Negative); Clarity Clear (Clear); Glucose, Urine (Dipstick) Normal (Negative); Leukocyte Negative Leu/uL (Negative); Nitrite Negative (Negative); Protein, Urine (Dipstick) 20 mg/dL (Neg-Trace)
[2019-08-09 21:46] LABS: Amphetamine Not Detected (NotDetected); Barbiturates Screen Not Detected (NotDetected); Benzodiazepine Screen Not Detected (NotDetected); Cocaine Metabolite Screen Not Detected (NotDetected); Medtox Control Line Valid? VALID (VALID); Medtox Reader # READER 4; Methadone Not Detected (NotDetected); Methamphetamine Not Detected (NotDetected); Opiate Screen Not Detected (NotDetected); Oxycodone Screen Not Detected (NotDetected); Phencyclidine (PCP) Not Detected (NotDetected); THC/Cannabinoid Screen Not Detected (NotDetected); Tricyclic Screen Not Detected (NotDetected)
== END 2019-08-09 22:41 | disposition home or self-care (01) ==
LOC: ERS 18:32
DX: R55 Syncope and collapse (principal); I10 Essential (primary) hypertension
CPT/HCPCS: 36415; 70450; 71045; 80053; 80306; 80307; 81003; 82550; 84484; 85025; 85379; 93005

== ENCOUNTER 2019-08-23 11:54 | Emergency (ER) | payer SELFPAY | END 2019-08-23 13:18 | disposition home or self-care (01) | LOC: ERS 11:54 | DX: F19.10 Other psychoactive substance abuse, uncomplicated (principal); F79 Unspecified intellectual disabilities; Z87.891 Personal history of nicotine dependence | CPT/HCPCS: 99284 ==

== ENCOUNTER 2019-11-02 16:51 | Emergency (ER) | payer SELFPAY ==
[2019-11-02 17:55] LABS: #Lymphocytes 1.2 thou/uL (1.20-3.40); #Monocytes 0.3 thou/uL (0.11-0.59); #Neutrophils 4.5 thou/uL (1.40-6.50); %Basophils 0.1 % (0.0-1.0); %Eosinophils 0.7 % (0.0-10.0); %Lymphocytes 19.1 % (21.0-51.0); %Monocytes 5.6 % (0.0-10.0); %Neutrophils 74.4 % (42.0-75.0); Hemoglobin 14.3 g/dL (14.0-18.0); Mean Corpuscular Hemoglobin 31.6 pg (27.0-31.0); Mean Corpuscular Volume 92.9 fL (78.0-98.0); Mean Platelet Volume 9.8 fL (7.4-10.4); Platelet Count 154 thou/uL (130-400); RBC Distribution Width 12.1 % (11.5-14.5); Red Blood Cell (RBC) Count 4.51 mill/uL (4.70-6.10)
--- NOTE | 2019-11-02 18:19 | CT ---
Head CT without contrast 11/02/2019: COMPARISON: 08/09/2019 HISTORY: Syncope, trauma TECHNIQUE: Axial CT imaging at 5 mm intervals from vertex through skull base without contrast FINDINGS: There is a focal calvarial defect consistent with prior surgery in the right frontal region , stable. Superior to this there is evidence of prior right-sided frontal craniotomy. There is mild polypoid mucosal thickening within the alveolar recess of the bilateral maxillary sinuses, incomplete ly imaged. No acute fracture. There is encephalomalacia involving the right temporal lobe in the middle cranial fossa and involving the inferior anterior aspect of the right frontal lobe. These findings are stable when compared to the prior examination. No intracranial hemorrhage, midline shift, mass effect, or ventricular enlargement. IMPRESSION: Stable head CT as detailed above. No intracranial hemorrhage or displaced calvarial fract ure.
[2019-11-02 18:22] LABS: ALT (SGPT) 25 U/L (8-55); AST (SGOT) 22 U/L (5-34); Acetaminophen Less than 6.0 mcg/mL (10.0-30.0); Albumin 4.5 g/dL (3.5-5.0); Alcohol Less than 10 mg/dL (Less than 10); Alkaline Phosphatase 90 U/L (40-110); Anion Gap 14 mmol/L (10-20); BUN (Urea Nitrogen) 11 mg/dL (8.9-20.6); Bilirubin, Total 0.5 mg/dL (0.2-1.2); CK (CPK) 360 U/L (30-200); Calc. Creatinine Clearance 0 mL/min (70-130); Calcium 9.2 mg/dL (7.8-10.44); Carbon Dioxide 24 mmol/L (22-29); Chloride 108 mmol/L (98-107); Estimated GFR-MDRD 81; Globulin 2.5 g/dL (2.4-3.5); Glucose 107 mg/dL (70-105); Magnesium 2.2 mg/dL (1.6-2.6); Potassium 4.5 mmol/L (3.5-5.1); Salicylate Less than 8.0 mg/dL (15.0-30.0); Sodium 141 mmol/L (136-145)
[2019-11-02 18:35] LABS: Bilirubin Small (Negative); Blood, Urine Negative (Negative); Glucose, Urine (Dipstick) Negative (Negative); Leukocyte Negative (Negative); Nitrite Negative (Negative); Protein, Urine (Dipstick) 30 mg/dL (Neg-Trace)
[2019-11-02 18:36] LABS: Clarity Clear (Clear)
[2019-11-02 18:37] LABS: Bacteria/HPF None Seen HPF (None Seen); RBC/HPF 0-3 HPF (0-3); Squamous Epithelial 0-3 HPF (0-3); WBC/HPF 0-3 HPF (0-3)
[2019-11-02 18:47] LABS: Amphetamine Not Detected (NotDetected); Barbiturates Screen Not Detected (NotDetected); Benzodiazepine Screen Not Detected (NotDetected); Cocaine Metabolite Screen Not Detected (NotDetected); Medtox Control Line Valid? VALID (VALID); Medtox Reader # READER 4; Methadone Not Detected (NotDetected); Methamphetamine Not Detected (NotDetected); Opiate Screen Not Detected (NotDetected); Oxycodone Screen Not Detected (NotDetected); Phencyclidine (PCP) Not Detected (NotDetected); THC/Cannabinoid Screen Not Detected (NotDetected); Tricyclic Screen Not Detected (NotDetected)
== END 2019-11-02 19:25 | disposition home or self-care (01) ==
LOC: ERS 16:51
DX: S00.81XA Abrasion of other part of head, initial encounter (principal); S80.211A Abrasion, right knee, initial encounter; J10.1 Influenza due to other identified influenza virus with other respiratory manifestations; F79 Unspecified intellectual disabilities; Z87.891 Personal history of nicotine dependence; X58.XXXA Exposure to other specified factors, initial encounter
CPT/HCPCS: 36415; 70450; 80053; 80306; 80307; 81003; 81015; 82550; 83735; 84484; 85025; 87804; 93005

== ENCOUNTER 2019-12-25 11:01 | Emergency (ER) | payer SELFPAY | END 2019-12-25 12:57 | disposition home or self-care (01) | LOC: ERS 11:01 | DX: F12.10 Cannabis abuse, uncomplicated (principal); Z87.891 Personal history of nicotine dependence | CPT/HCPCS: 93005 ==